=== PATIENT | male | born 1955 | race Hispanic/Latino ===

== ENCOUNTER 2025-08-03 19:35 | Emergency (ER) | payer OTHER, MEDICARE ==
[~2025-08-03] VITALS: Ht 175.3 cm; Wt 93.0 kg
--- NOTE | 2025-08-04 00:06 | HMCIMG ---
EXAM: Non-contrast CT examination of the Brain CLINICAL HISTORY: Head injury. TECHNIQUE: Thin collimated axial CT images of the brain were obtained, with sagittal and coronal reformatted images also submitted. A CT scan was done according to ALARA (As low as reasonably achievable). CONTRAST USED: None. COMPARISON: None provided. FINDINGS: No acute intracranial abnormality is present. Mild small vessel chronic ischemic changes in the bilateral cerebral white matter. No acute cortical infarction, hemorrhage, mass, or mass effect. There is mild prominence of the ventricles, cisterns, and sulci. No hydrocephalus or abnormal extra-axial fluid collections. The posterior fossa is unremarkable. The skull base and calvarium are intact. 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 The included portions of the paranasal sinuses are clear. Chronic mastoiditis bilaterally. IMPRESSION: No acute intracranial abnormality is present. Mild small vessel chronic ischemic changes in the bilateral cerebral white matter. Age-related cerebral atrophy. 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 /[place]
--- NOTE | 2025-08-04 00:12 | HMCIMG ---
EXAM: CR Chest, 1 view CLINICAL HISTORY: Cough. COMPARISON: None provided. FINDINGS: Mild perihilar airspace disease bilaterally. No large pleural effusion or pneumothorax. The cardiomediastinal silhouette is within normal limits. No acute osseous abnormality. IMPRESSION: Mild perihilar airspace disease bilaterally. /[place]
[2025-08-04] MEDS ORDERED: AZIT250T9 PO (00:22)
--- NOTE | 2025-08-04 00:23 | ERN ---
General Chief Complaint: Syncope Stated Complaint: COUGHING EPISODE, SYNCOPE Time Seen by MD: 19:48 Time Seen by Midlevel: 19:48 Source: patient History of Present Illness Initial Comments Patient having year old male presenting to ER following a syncopal episode. Patient had a coughing spell which led to a syncopal episode. He fell off a chair and hit his left forehead. On arrival he reports feeling significantly improved. Patient states he has been battling a cough for the last couple of weeks. Allergies: Coded Allergies: No Known Allergies (Unverified Allergy, Unknown, 08/03/25) Past Medical History Past Medical History: Diabetes-Type II, Hypertension, Other Medical History Other: COLON CANCER Past Surgical History: Other Surgical History Other: COLON ROS Dictation CONSTITUTIONAL: Negative except for HPI HEAD/FACE: Negative except for HPI EENT: Negative except for HPI RESPIRATORY: Negative except for HPI GASTROINTESTINAL/ABDOMINAL: Negative except for HPI GENITOURINARY: Negative except for HPI MUSCULOSKELETAL: Negative except for HPI INTEGUMENTARY: Negative except for HPI NEUROLOGICAL/PSYCH: Negative except for HPI HEMATOLOGIC/LYMPHATIC: Negative except for HPI All Systems Negative, Except as noted above. 13 point review of systems assessed and all negative except for above. Physical Exam Physical Exam Dictation Vital Signs reviewed General Appearance: Alert, oriented x 3, no acute distress, well developed, nourished. Head and Face: non-traumatic. Eyes: PERRL, pink conjunctivas, eyelid no trauma, anterior chamber with arcus senilis. Ears: Pinnas intact and no signs of trauma or erythema ear canals clear and no discharge TM no erythema Nose: No discharge, no bleeding. Oropharynx: Mouth normal, tongue pink, pharynx clear,no erythema, tonsils no exudates, no abscesses noted, mucous memb rigoberto moist Neck: Supple, non-tender, no thyromegaly, no masses, no JVD, no bruits Breast:Deferred Chest:No tenderness, no crepitus, no paradoxical movement, no retractions Lungs:Clear, well-ventilated, symmetric, no rales, no wheezing, no rhonchi, no s tridor, good breath sounds bilaterally Heart: Regular rate, regular rhythm, no murmur, no gallops Vascular: no peripheral edema, Abdomen: Soft, positive bowel sounds, nondistended, no guarding, nontender, no rebound, no masses no hepatomegaly, no splenomegaly, no Shankar's sign, no hernias. Rectal: Deferred Genital: Deferred Neurological: Normal speech, motor function intact, sensory function intact Musculoskeletal: Neck nontender, full range of motion, back nontender, full range of motion, Extremities: nontender, full range of motion Skin: Color pink, dry, no turgor, no rash, no lacerations, no abrasions, no contusions. Lymphatic: Deferred MDM MDM: Differential diagnosis: Coughing spell, syncope, acute bronchitis There are no social concerns with this patient. Prescription drug management Prescriptions will include: Azithromycin Medical management and examination interpretation discussions were had by me with other qualified healthcare professionals as indicated for the patient's care. ED Course Orders Procedure Category Date Status Time 12 Lead Ekg Tracing- EKG 08/03/25 Logged Technical 19:37 Chest 1vw RAD 08/03/25 Resulted 22:00 Ct Head/Brain W/O CT 08/03/25 Resulted Contrast 22:00 Vital Signs Date Time Temp Pulse Resp B/P (MAP) Pulse Ox O2 Delivery O2 Flow Rate FiO2 08/03/25 19:54 98.1 82 16 175/83 98 Room Air* 0 21 08/03/25 19:37 97.5 80 16 179/88 99 Room Air DX & DISP Disposition: Discharge Departure Impression: Primary Impression: Syncope Additional Impressions: Forehead contusion, Bronchitis Condition: Stable Scripts Azithromycin (Azithromycin) 250 Mg Tablet 1 TAB PO AD for 5 Days, #6 TAB 0 Refills 2 the first day followed by 1 for days 2-5 Prov: LOS PHILLIP 08/04/25 Additional Instructions: Your CT scan of the head does not show any acute abnormality. Your chest x-ray does show evidence of bronchitis. I have given you a prescription for azithromycin which should help improve your cough the next couple of days. Follow up with primary care doctor in 2-3 days for repeat evaluation. Return to the ER for any new or worsening symptoms Referrals: KULWINDER PHILLIP MD (PCP) Time of Disposition: 00:21 I have reviewed the case, and I agree with, Diagnosis and Plan I performed the substantive portion of the visit. I have reviewed and personally made and approve the management plan that is documented in the note by myself or the MICHELE. I acknowledge for responsibility for the patient's management plan. LOS PHILLIP Aug 04, 2025 00:23
[2025-08-04 00:34] VITALS: BP 175/92; PULSE 88; RESP 19; TEMP 98.3; O2SAT 99
--- NOTE | 2025-08-04 00:40 | NUR ---
PT DENIES HEADACHE, DIZZINESS OR BLURRY VISION, PT NOTED TO HAVE BP 175/92 STATES HE WILL TAKE HIS AMLODIPINE AT HOME FOR HIS SCHEDULED PM MEDS. MARLENE PHILLIP AWARE OF BP. PER MARLENE, PT OKAY FOR DC AT THIS TIME.
--- NOTE | 2025-08-04 07:19 | EKG ---
[facility] Test Date: 2025-08-03 Test Time: 19:36:17 Pat Name: ROSIBEL HINTON Department: [facility] Room: Gender: Dust [employer]or [employer]: [facility] : 1955 Requested By: MANOLO CHEUNG Order Number: [id number] Reading MD: Reid Lopez Measurements Intervals [place] Rate: 72 P: 55 WV: 149 QRS: 63 QRSD: 105 T: 55 QT: 409 QTc: 448 Interpretive Statements Sinus rhythm Low voltage, precordial leads No previous ECG available for comparison Electronically Signed On 08-05-2025 07:23:34 CDT by Reid Lopez Please click the below link to view image of tracing.
== END 2025-08-04 00:45 | disposition home or self-care (01) ==
LOC: EDH 19:35
DX: S00.83XA Contusion of other part of head, initial encounter (principal); R55 Syncope and collapse; J40 Bronchitis, not specified as acute or chronic; E11.9 Type 2 diabetes mellitus without complications; I10 Essential (primary) hypertension; Z85.038 Personal history of other malignant neoplasm of large intestine; W07.XXXA Fall from chair, initial encounter; Y93.89 Activity, other specified; Y92.89 Other specified places as the place of occurrence of the external cause; Y99.8 Other external cause status
CPT/HCPCS: 70450; 71045; 93005; 99284